=== PATIENT | female | born 1940 | race Caucasian/White ===

== ENCOUNTER 2017-04-26 10:24 | Outpatient (CLI) | payer MEDICARE, MEDICAID | END 2017-04-26 10:25 | disposition critical access hospital (66) | LOC: EMS 10:24 | PROVIDERS: ATTEND Surgery | DX: R06.00 Dyspnea, unspecified (principal) | CPT/HCPCS: A0425; A0429 ==

== ENCOUNTER 2017-04-26 10:25 | Emergency (ER) | payer MEDICARE, MEDICAID ==
[2017-04-26] MEDS ORDERED: IPRATROPIUM/ALBUTEROL 3 ML NEB INH STA (10:56)
[2017-04-26] MEDS ORDERED: IPRATROPIUM/ALBUTEROL 3 ML NEB INH ONE (11:04)
[2017-04-26] MEDS ORDERED: cefTRIAXone 1 GM in SODIUM CHLORIDE 0.9% MINIBAG 100 ML IV STA (11:42)
[2017-04-26] MEDS ORDERED: DEXAMETHASONE 10 MG/ML VIAL IVP STA (11:42)
[2017-04-26] MEDS ORDERED: cefTRIAXone 1 GM VIAL ONE (11:45)
[2017-04-26] MEDS ORDERED: DEXAMETHASONE 10 MG/ML VIAL ONE (11:45)
--- NOTE | 2017-04-26 11:45 | ED Physician Documentation ---
PD HPI URI - Stated complaint Stated Complaint: SOA - Chief complaint Chief Complaint: Resp - History obtained from History obtained from: Patient, Family - History of Present Illness Timing - onset: How many months ago (2) Timing duration: Months (2) Timing details: Gradual onset, Still present, Waxing and waning Associated symptoms: Nasal congestion, Rhinorrhea, Productive cough, Dyspnea Contributing factors: Travel Improves by: Rest, MDI/nebulizer Worsened by: Activity Similar symptoms before: Diagnosis (has asthma) Recently seen: Clinic (Seen in the clinic yesterday and prescribed antibiotic and steroid but has not picked it up yet.) - Additional information Additional information: 77 y/o female with a history of asthma, type 2 diabetes and HTN has developed a cough before a trip to [place] about 2 months ago. The cough has persisted and she has had intermittent ear pain and muffled hearing. She has recently had a pharmacy error with amlodipine substituted for her synthroid and this caused some swelling to the LE and this has resolved since she stopped the medication and she was on this double dose for about a week about a week ago. 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 : None HEENT: None Psych: Depression Musculoskeletal: None Derm: None - Past Surgical History Past Surgical History: Yes General: Cholecystectomy Ortho: Arthroscopic surgery /INTEGRATED MARKETING MANAGER: Hysterectomy HEENT: Tonsil/Adenoidectomy - Present Medications Home Medications: Ambulatory Orders Medication Instructions Recorded Confirmed Citalopram [CeleXA] 20 mg PO DAILY 05/01/14 04/26/17 Glipizide 10 mg PO BID 05/01/14 04/26/17 Hydrochlorothiazide 12.5 mg PO DAILY 05/01/14 04/26/17 Levothyroxine [Synthroid] 175 mcg PO QDAC 05/01/14 04/26/17 Losartan [Cozaar] 100 mg PO DAILY 05/01/14 04/26/17 Omeprazole [Prilosec] 20 mg PO BID 05/01/14 04/26/17 Simvastatin 40 mg PO DAILY 05/01/14 04/26/17 metFORMIN [Glucophage] 500 mg PO BID 05/01/14 04/26/17 Azithromycin [Zithromax] 250 mg PO DAILY #6 tablet 04/26/17 Benzonatate [Tessalon] 100 - 200 mg PO TID PRN #20 capsule 04/26/17 Ipratropium/Albuterol [Duoneb] 3 ml INH Q6H PRN #20 neb 04/26/17 amLODIPine [Norvasc] 1 tab PO DAILY 04/26/17 04/26/17 predniSONE [Deltasone] 10 mg PO DAILY #26 tablet 04/26/17 - Allergies Allergies/Adverse Reactions: Allergies Allergy/AdvReac Type Severity Reaction Status Date / Time codeine AdvReac Nausea Verified 05/01/14 11:57 - Social History Does the pt smoke?: Yes Smoking Status: Former smoker Does the pt drink ETOH?: No Does the pt have substance abuse?: No - Immunizations Immunizations are current?: Yes - POLST Patient has POLST: No PD ED PE NORMAL - HEENT HEENT: Other (The left TM is inflammed with indistinct landmarks the right is less inflammed. ) - Neck Neck: Supple, no meningeal sign - Cardiac Cardiac: RRR, No murmur - Respiratory Respiratory: No respiratory distress, Other (bibasilar rhonchi worse on the left ) - Abdomen Abdomen: Soft, Non tender - Back Back: No CVA TTP, No spinal TTP - Derm Derm: Normal color, Warm and dry, No rash - Extremities Extremities: No deformity, Other (trace edema bilaterally.) Results - Vitals Vitals: Vital Signs - 24 hr 04/26/17 04/26/17 10:28 11:50 Temperature 36.6 C Heart Rate 88 75 Respiratory 19 17 Rate Blood Pressure 205/88 H 168/116 H O2 Saturation 93 95 Oxygen O2 Source [] Room air O2 Source [] Room air O2 Source Room air - Rads (name of study) 2 veiw chest Radiology: Prelim report reviewed (IMPRESSION: 1. Lung volumes and heart size are within normal limits. 2. There are some nonspecific reticular opacity within the lower lungs. Primary considerations include atelectasis or scarring. 2. There is no evidence of lobar infiltrate or lung edema. 4. No pneumothorax.) Departure - Departure Disposition: 01 Home, Self Care Clinical Impression: Otitis media Qualifiers: Otitis media type: suppurative Laterality: bilateral Chronicity: acute Recurrence: not specified as recurrent Spontaneous tympanic membrane rupture: without spontaneous rupture Qualified Code(s): H66.003 - Acute suppurative otitis media without spontaneous rupture of ear drum, bilateral Condition: Stable Instructions: ED Otitis Media Acute Adult Follow-Up: Bora Gilmore MD [Primary Care Provider] - Prescriptions: predniSONE [Deltasone] 10 mg PO DAILY #26 tablet Ipratropium/Albuterol [Duoneb] 3 ml INH Q6H PRN #20 neb PRN Reason: Dyspnea Benzonatate [Tessalon] 100 - 200 mg PO TID PRN #20 capsule PRN Reason: Cough Azithromycin [Zithromax] 250 mg PO DAILY #6 tablet
--- NOTE | 2017-04-26 13:00 | XRAY Report ---
EXAM: CHEST RADIOGRAPHY EXAM DATE: 04/26/2017 12:05 PM. CLINICAL HISTORY: Cough dyspnea. COMPARISON: None. TECHNIQUE: 2 views. FINDINGS: Lungs/Pleura: Lung volumes are within normal limits. There is mild reticular opacity within the lower lungs. No evidence of pleural effusion. No evidence of lung edema. No pneumothorax. Mediastinum: Heart and mediastinal contours are unremarkable. Other: None. IMPRESSION: 1. Lung volumes and heart size are within normal limits. 2. There are some nonspecific reticular opacity within the lower lungs. Primary considerations includ e atelectasis or scarring. 3. There is no evidence of lobar infiltrate or lung edema. 4. No pneumothorax. [facility] Referring Provider Line: [phone] SITE ID: [id number]
[2017-04-26 13:40] VITALS: BP 189/81
== END 2017-04-26 13:45 | disposition home or self-care (01) ==
LOC: ED 10:25
DX: H66.003 Acute suppurative otitis media without spontaneous rupture of ear drum, bilateral (principal); J45.909 Unspecified asthma, uncomplicated; E11.9 Type 2 diabetes mellitus without complications; I10 Essential (primary) hypertension; Z85.42 Personal history of malignant neoplasm of other parts of uterus; Z79.84 Long term (current) use of oral hypoglycemic drugs; Z87.891 Personal history of nicotine dependence
CPT/HCPCS: 71020; 96374; 99283; 99284; J7620

== ENCOUNTER 2017-10-26 18:34 | Emergency (ER) | payer MEDICARE, MEDICAID ==
[2017-10-26 19:14] LABS: BASOPHILS # (AUTO) 0.1 10^3/uL (0.0-0.1); BASOPHILS % (AUTO) 0.7 %; EOSINOPHILS # (AUTO) 0.4 10^3/uL (0.0-0.7); EOSINOPHILS % (AUTO) 4.1 %; HCT - HEMATOCRIT 33.8 % (37.0-47.0); HGB - HEMOGLOBIN 11.4 g/dL (12.0-16.0); LYMPHOCYTES # (AUTO) 1.5 10^3/uL (1.5-3.5); LYMPHOCYTES % (AUTO) 15.5 %; MEAN CORPUSCULAR HEMOGLOBIN 30.4 pg (27.0-31.0); MEAN CORPUSCULAR HGB CONC 33.6 g/dL (32.0-36.0); MEAN CORPUSCULAR VOLUME 90.6 fL (81.0-99.0); MEAN PLATELET VOLUME 8.8 fL (7.9-10.8); MONOCYTES # (AUTO) 0.6 10^3/uL (0.0-1.0); MONOCYTES % (AUTO) 5.7 %; NEUTROPHILS # (AUTO) 7.3 10^3/uL (1.5-6.6); RED BLOOD COUNT 3.74 10^6/uL (4.20-5.40); UNCORRECTED WHITE BLOOD COUNT 9.8 x10^3/uL; WHITE BLOOD COUNT 9.8 x10^3/uL (4.8-10.8)
[2017-10-26 19:23] LABS: CALCIUM 9.4 mg/dL (8.5-10.3); CREATININE 1.3 mg/dL (0.4-1.0); POTASSIUM 4.1 mmol/L (3.5-5.0)
--- NOTE | 2017-10-26 20:11 | CT Report ---
EXAM: CT HEAD EXAM DATE: 10/26/2017 07:38 PM. CLINICAL HISTORY: Headache and altered mental status. COMPARISON: Head CT 10/19/2016. TECHNIQUE: Multiaxial CT images were obtained from the foramen magnum to the vertex. IV contrast: Non e. Reformats: Coronal. In accordance with CT protocol optimization, one or more of the following dose reduction techniques w ere utilized for this exam: automated exposure control, adjustment of mA and/or KV based on patient s ize, or use of iterative reconstructive technique. FINDINGS: Parenchyma: No intraparenchymal hemorrhage. Moderate left cerebellar hemisphere chronic encephalomala lily appears unchanged. New hypodense lesion seen at the right temporoparietal and occipital lobe junc tion, measures 1.9 x 2.2 cm. New hypodense lesion seen at the left posterior medial occipital lobe me asuring 2 x 2.2 cm. New small hypodense lesion seen at the posterior medial aspect of the left pariet al lobe measuring 1 cm. These new hypodense lesions are concerning for new malignant masses/metastasi s with vasogenic edema. Differential includes subacute or chronic infarcts. Further evaluation is rec ommended with an MRI brain without and with contrast. No midline shift or downward herniation. Mild bilateral chronic microangiopathy again noted in the supratentorial white matter. Extraaxial Spaces: Normal for age. No subdural or epidural collections identified. Ventricles: The ventricles and cortical sulci are mildly enlarged, consistent with age-related tissue loss. Sinuses and orbits: Imaged paranasal sinuses, orbits, and mastoids show no significant abnormality. Bones: No evidence of fracture or calvarial defect. IMPRESSION: 1. New hypodense lesion seen at the right temporoparietal and occipital lobe junction, measures 1.9 x 2.2 cm. New hypodense lesion seen at the left posterior medial occipital lobe measuring 2 x 2.2 cm. New small hypodense lesion seen at the posterior medial aspect of the left parietal lobe measuring 1 cm. These new hypodense lesions are concerning for new malignant masses/metastasis with vasogenic cecile ma. Differential includes subacute or chronic infarcts. Further evaluation is recommended with an MRI brain without and with contrast. 2. Moderate left cerebellar hemisphere chronic encephalomalacia appears unchanged. Chronic senescent changes. [facility] The above critical findings were discussed with Dr. Hair by Dr. Doris Jones at 20:04 hrs on 12/26/16. Referring Provider Line: [phone] SITE ID: [id number]
[2017-10-26] MEDS ORDERED: IOPAMIDOL-300 100 ML VIAL ONE (20:35)
[2017-10-26] MEDS ORDERED: IOPAMIDOL-300 100 ML VIAL IVP ONE (21:17)
--- NOTE | 2017-10-26 22:07 | ED Physician Documentation ---
History of Present Illness - Stated complaint Stated Complaint: LOSS VISION - Chief complaint Chief Complaint: Neuro - History obtained from History obtained from: Patient (pt reports that right after she woke this AM she noticed that she was having problems seeing. she reportes "black spots" that moved around. states that she has had a small headache. She states that she has had "floaters" in the past but her vision is blurry today. No trauma, no neck pain.) Review of Systems Constitutional: denies: Fever, Chills Eyes: reports: Loss of vision, Decreased vision. denies: Photophobia, Irritation Ears: denies: Loss of hearing, Drainage/discharge Throat: denies: Oral lesions / sores, Sore throat Cardiac: denies: Chest pain / pressure Respiratory: denies: Cough GI: denies: Abdominal Pain, Nausea, Vomiting, Constipation, Diarrhea : denies: Dysuria, Frequency Skin: denies: Rash, Lesions Musculoskeletal: denies: Neck pain, Extremity pain, Joint pain, Joint swelling Neurologic: reports: Headache. 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 : None HEENT: None Psych: Depression Musculoskeletal: None Derm: None - Past Surgical History Past Surgical History: Yes General: Cholecystectomy Ortho: Arthroscopic surgery /STOVE TENDER: Hysterectomy HEENT: Tonsil/Adenoidectomy - Present Medications Home Medications: Ambulatory Orders Medication Instructions Recorded Confirmed Citalopram [CeleXA] 20 mg PO DAILY 05/01/14 04/26/17 Glipizide 10 mg PO BID 05/01/14 04/26/17 Hydrochlorothiazide 12.5 mg PO DAILY 05/01/14 04/26/17 Levothyroxine [Synthroid] 175 mcg PO QDAC 05/01/14 04/26/17 Losartan [Cozaar] 100 mg PO DAILY 05/01/14 04/26/17 Omeprazole [Prilosec] 20 mg PO BID 05/01/14 04/26/17 Simvastatin 40 mg PO DAILY 05/01/14 04/26/17 metFORMIN [Glucophage] 500 mg PO BID 05/01/14 04/26/17 Azithromycin [Zithromax] 250 mg PO DAILY #6 tablet 04/26/17 Benzonatate [Tessalon] 100 - 200 mg PO TID PRN #20 capsule 04/26/17 Ipratropium/Albuterol [Duoneb] 3 ml INH Q6H PRN #20 neb 04/26/17 amLODIPine [Norvasc] 1 tab PO DAILY 04/26/17 04/26/17 predniSONE [Deltasone] 10 mg PO DAILY #26 tablet 04/26/17 - Allergies Allergies/Adverse Reactions: Allergies Allergy/AdvReac Type Severity Reaction Status Date / Time codeine AdvReac Nausea Verified 10/26/17 18:54 - Social History Does the pt smoke?: Yes Smoking Status: Current every day smoker Does the pt drink ETOH?: No Does the pt have substance abuse?: No - Immunizations Immunizations are current?: Yes - POLST Patient has POLST: No PD ED PE NORMAL - Vitals Vital signs reviewed: Yes - General General: Alert and oriented X 3, No acute distress, Well developed/nourished - HEENT HEENT: Atraumatic, PERRL, EOMI, Ears normal, Moist mucous membranes, Pharynx benign - Cardiac Cardiac: RRR, No murmur, No gallop - Respiratory Respiratory: No respiratory distress, Clear bilaterally - Abdomen Abdomen: Soft, Non tender, Non distended - Derm Derm: Normal color, Warm and dry, No rash - Extremities Extremities: No deformity, No tenderness to palpate, No edema, No calf tenderness / cord - Neuro Neuro: Alert and oriented X 3, No motor deficit, No sensory deficit, Normal speech Eye Opening: Spontaneous Motor: Obeys Commands Verbal: Oriented GCS Score: 15 - Psych Psych: Normal mood, Normal affect PD ED PE EXPANDED - Eyes Eyes: PERRL, Temp arteries nontender. No: Unequal pupils, EOM palsy, Subconj hemorrhage - Neuro Neuro: Alert and Oriented X 3, Normal speech. No: Weakness, Abnormal sensation , CNII-XII intact (pt with right visual field Hemianopsia. ), Aphasia, Dysarthria Results - Vitals Vitals: Vital Signs - 24 hr 10/26/17 10/26/17 10/26/17 18:38 19:57 20:15 Temperature 36.5 C Heart Rate 60 53 L 73 Respiratory 20 16 17 Rate Blood Pressure 190/50 H 179/66 H 182/59 H O2 Saturation 95 95 94 10/26/17 21:56 Temperature 36.9 C Heart Rate 69 Respiratory 20 Rate Blood Pressure 184/65 H O2 Saturation 96 Oxygen O2 Source [With Activity] Room air O2 Source [Without Activity] Room air O2 Source Room air - EKG (time done) 1859 Rate: Rate (enter#) Rhythm: Sinus bradycardia [place]: Normal Intervals: QRS normal. No: Prolonged NC (88 ms), Prolonged QT QRS: Normal Ischemia: Normal ST segments Other comments: Other comments (multiple PVC) - Labs Labs: Laboratory Tests 10/26/17 10/26/17 19:05 19:05 WBC 9.8 RBC 3.74 L Hgb 11.4 L Hct 33.8 L MCV 90.6 MCH 30.4 MCHC 33.6 RDW 14.0 Plt Count 254 MPV 8.8 Neut # 7.3 H Lymph # 1.5 Glades # 0.6 Eos # 0.4 Baso # 0.1 Absolute Nucleated RBC 0.00 Nucleated RBC % 0.0 Sodium 140 Potassium 4.1 Chloride 103 Carbon Dioxide 25 Anion Gap 12.0 BUN 26 H Creatinine 1.3 H Estimated GFR (MDRD) 40 L Glucose 130 H Calcium 9.4 - Rads (name of study) CT head Radiology: Final report received CTA head/neck Radiology: Prelim report reviewed (basilar artery occlusion ) PD MEDICAL DECISION MAKING - ED course Complexity details: d/w patient ED course: patient with right visual field vision loss. Discussed case with Dr Pereyra at [facility] neurology. Pt's symptoms began this AM. she is not inthe window for TpA. discussed CTA result with Dr Pereyra who states that she is not a candidate for emergent IR intervention. Will give a full dose ASA per [facility] recommendation. discussed with patient and family. will transfer. Departure - Departure Disposition: 02 Transfer Acute Care Hosp Clinical Impression: Cerebrovascular accident (CVA) Condition: Stable
[2017-10-26] MEDS ORDERED: ASPIRIN 325 MG TABLET PO ONE (22:08)
--- NOTE | 2017-10-26 22:26 | CT Preliminary Report ---
Exam: CT HEAD ANGIO IMPRESSION: CT Head: 1. There are 3 peripheral foci of hypodensity with faint patchy peripheral enhancement as noted above . These involve right temporal and left occipital lobes. These may represent areas of late acute or e kelly subacute infarct. This could be further evaluated with MRI. 2. 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 3. Mild patchy white matter hypodensity noted in the cerebral hemispheres. This is nonspecific. This may represent sequela of small vessel ischemic change. 4. Intracranial atherosclerotic vascular calcifications. CTA Head: 1. Occlusion of intracranial right vertebral artery. This may be atherosclerotic in nature rather kalp[place] n secondary to dissection. 2. Moderate vascular calcifications involving intracranial left vertebral artery. Mild, 25%, stenosis . Left vertebral artery and basilar artery are patent. 3. Marked atherosclerotic calcification involving cavernous ICA. This makes evaluation of stenosis johnson boptimal. There likely is long segment mild stenosis present. 4. Moderate stenosis involving proximal M2 branch of posterior division right MCA. 5. Moderate to severe stenosis involving P2 and P3 segments of left BRICK SIDING APPLICATOR. [facility] SITE ID: [id number]
--- NOTE | 2017-10-26 22:28 | CT Report ---
EXAM: CT ANGIOGRAM NECK EXAM DATE: 10/26/2017 09:23 PM. CLINICAL HISTORY: Stroke. Headache. Altered mental status. Multiple hypodense lesions present in the brain. COMPARISON: None. CT scan and CT angiogram of the head 10/26/2017. TECHNIQUE: Routine axial helical imaging was performed from the skull base through the aortic arch. I V Contrast: 70 cc [id number]. Reconstructions: Routine multiplanar 3D MIP reconstructions. Evaluation of arterial stenosis is based on a NASCET method of measurement. In accordance with CT protocol optimization, one or more of the following dose reduction techniques w ere utilized for this exam: automated exposure control, adjustment of mA and/or KV based on patient s ize, or use of iterative reconstructive technique. FINDINGS: (Suboptimal opacification of the aortic arch and great vessels is seen. Timing of contrast is in pulm onary arterial phase.) Mild tortuosity and calcification of the aortic arch is seen. Great vessels off the arch are patent. Moderate tortuosity and scattered atherosclerotic vascular calcifications are seen. Right Carotid: The common carotid, internal carotid, and external carotid arteries are widely patent. No dissection, significant atherosclerotic plaque, or calcification identified. Mild vascular calcif ication is seen at the CCA bifurcation. Left Carotid: The common carotid, internal carotid, and external carotid arteries are widely patent. No dissection. Mild atherosclerotic calcification is seen at the CCA bifurcation. The ICA is patent w ithout significant stenosis. Moderate stenosis is seen at the origin of the ECA. The ECA is patent. Vertebrals: The left vertebral artery is patent and unremarkable. No significant atherosclerotic change or stenos is. No dissection. The right vertebral artery is abnormal. Minimal faint opacification of cervical right vertebral arter y is appreciated to the V3 segment. No significant opacification of the V4 segment is identified. Intracranial Circulation: (See report of CT angiogram of the intracranial circulation performed same time.) Other: The lung apices are clear. Muscle and fascial planes of the neck are unremarkable. Straightening of the cervical spine is seen. Mild spondylolisthesis is seen at C3-C4 and C4-C5. Scatt ered spondylosis is seen throughout the cervical spine. Left-sided degenerative facet changes seen at C2-C3 and C3-C4. Degenerative disk and uncovertebral changes seen at C5-C6 and C6-C7. IMPRESSION: 1. Abnormal right vertebral artery. No significant opacification of the cervical right VA is seen. 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 This could be secondary to atherosclerotic change versus dissection. 2. The left vertebral artery is dominant and widely patent. 3. Bilateral carotid arteries are patent. [facility] Referring Provider Line: [phone] SITE ID: [id number]
--- NOTE | 2017-10-26 22:29 | CT Report ---
EXAM: CT ANGIOGRAM HEAD. CT SCAN OF THE HEAD WITH CONTRAST. EXAM DATE: 10/26/2017 09:23 PM CLINICAL HISTORY: Stroke. Headache. Altered mental status. Multiple hypodense lesions present in the brain. COMPARISON: CT scan of the head without contrast 10/26/2017, 10/19/2016. CT angiogram of the neck . TECHNIQUE: 1. CT Scan Head: Using a multidetector scanner, axial images were acquired from the foramen magnum to the skull vertex following contrast administration. 2. CT Angiogram: Using a multidetector scanner, high-resolution axial images were acquired from the s kull base through vertex following rapid infusion of intravenous contrast. Reformats: Multiplanar MIP reformats were reconstructed. Nascet criteria used for stenosis measurement. IV Contrast: 70 cc Isovue-300. In accordance with CT protocol optimization, one or more of the following dose reduction techniques w ere utilized for this exam: automated exposure control, adjustment of mA and/or KV based on patient s ize, or use of iterative reconstructive technique. FINDINGS: POST CONTRAST HEAD: Parenchyma: There are 3 wedge-shaped areas of parenchymal hypodensity seen in the cerebral hemisphere s. Minimal faint patchy peripheral enhancement is seen, however no significant enhancement is present on this arterial phase study. No vasogenic edema surrounding the faint enhancement is seen. 20 mm we dge-shaped lesion is seen posterolaterally in the right temporal lobe. 15 mm lesion is seen in the po steromedial pole of the left occipital lobe. 8 mm lesion is seen posteromedially in the superior aspe ct of the left occipital lobe. Wedge-shaped encephalomalacia is seen in the inferolateral left cerebellum, unchanged. Mild patchy wh ite matter hypodensity is seen in the cerebral hemispheres. No intracranial hemorrhage. Extraaxial Spaces: Normal for age. No subdural or epidural collections identified. Ventricles: Normal in size and position. Sinuses and orbits: Imaged paranasal sinuses, orbits, and mastoids show no significant abnormality. Bones: No evidence of fracture or calvarial defect. Other: Marked atherosclerotic vascular calcification is seen involving intracranial ICA and vertebral arteries. CT ANGIOGRAM HEAD: RIGHT: Internal Carotid artery: No evidence of dissection. No evidence of aneurysm along the intracranial IC A. Marked vascular calcification is seen in the cavernous and proximal supracavernous segments. Evalu ation for stenosis is suboptimal. There likely is multilevel mild stenosis present. Anterior Cerebral Artery: Patent without significant stenosis, aneurysm, or vascular malformation. Middle Cerebral Artery: Moderate stenosis is seen in proximal M2 posterior division segment. Distal t o this M2 and candelabra branches are patent. No aneurysm. Posterior Cerebral Artery: Patent without significant stenosis, aneurysm, or vascular malformation. Posterior Communicating Artery: Patent. No aneurysm. Vertebral Artery: Markedly abnormal. No significant opacification is seen involving intracranial V4 s egment. Scattered atherosclerotic calcifications are present. There may be subtle faint opacification of the V3 segment. Opacification of irregular small caliber distal V4 segment is seen proximal to th e basilar artery. LEFT: Internal Carotid artery: No evidence of dissection. No evidence of aneurysm along the intracranial IC A. Marked vascular calcification is seen in the cavernous and proximal supracavernous segments. Evalu ation for stenosis is suboptimal. There likely is multilevel mild stenosis present. Anterior Cerebral Artery: Patent without significant stenosis, aneurysm, or vascular malformation. Middle Cerebral Artery: Patent without significant stenosis, aneurysm, or vascular malformation. Acce ssory origin of posterior division MCA is seen from the distal supracavernous ICA just proximal to th e terminus. Posterior Cerebral Artery: Moderate to severe stenosis is seen in the P2 and P3 segment. Posterior Communicating Artery: Patent. No aneurysm. Vertebral Artery: Patent without significant stenosis. No evidence of dissection. Moderate atheroscle rotic calcification is seen. Mild, less than 50%, stenosis is seen. CENTRAL: Anterior Communicating Artery: Patent. No aneurysm. Basilar Artery: Patent without significant stenosis. No aneurysm. DURAL VENOUS SINUSES AND MAJOR CENTRAL VEINS: Not well opacified due to early arterial phase timing o f angiogram study. On postcontrast head CT dural sinuses appear patent. IMPRESSION: CT Head: 1. There are 3 peripheral foci of hypodensity with faint patchy peripheral enhancement as noted above . These involve right temporal and left occipital lobes. These may represent areas of late acute or e kelyl subacute infarct. This could be further evaluated with MRI. 2. 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 3. Mild patchy white matter hypodensity noted in the cerebral hemispheres. This is nonspecific. This may represent sequela of small vessel ischemic change. 4. Intracranial atherosclerotic vascular calcifications. CTA Head: 1. Occlusion of intracranial right vertebral artery. This may be atherosclerotic in nature rather kalpana n secondary to dissection. 2. Moderate vascular calcifications involving intracranial left vertebral artery. Mild, 25%, stenosis . Left vertebral artery and basilar artery are patent. 3. Marked atherosclerotic calcification involving cavernous ICA. This makes evaluation of stenosis johnson boptimal. There likely is long segment mild stenosis present. 4. Moderate stenosis involving proximal M2 branch of posterior division right MCA. 5. 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 [facility] Referring Provider Line: [phone] SITE ID: [id number]
[2017-10-27 00:19] VITALS: BP 176/65
== END 2017-10-27 01:15 | disposition short-term general hospital (02) ==
LOC: ED 18:34
DX: I63.9 Cerebral infarction, unspecified (principal); H53.8 Other visual disturbances; I10 Essential (primary) hypertension; J45.909 Unspecified asthma, uncomplicated; E11.9 Type 2 diabetes mellitus without complications; Z79.84 Long term (current) use of oral hypoglycemic drugs; K21.9 Gastro-esophageal reflux disease without esophagitis; Z85.42 Personal history of malignant neoplasm of other parts of uterus; F17.200 Nicotine dependence, unspecified, uncomplicated
CPT/HCPCS: 36415; 70450; 70496; 70498; 80048; 85025; 93005; 99285; A9270; Q9967

== ENCOUNTER 2017-12-12 13:22 | Outpatient (CLI) | payer MEDICARE, MEDICAID ==
[2017-12-12 14:05] LABS: ALBUMIN/GLOBULIN RATIO 1.3 (1.0-2.2); ALKALINE PHOSPHATASE 93 IU/L (42-121); ALT ALANINE AMINOTRANSFERASE 22 IU/L (10-60); AST ASPARTATE AMINOTRANSFERASE 23 IU/L (10-42); BILIRUBIN,TOTAL 0.6 mg/dL (0.2-1.0); BUN - BLOOD UREA NITROGEN 29 mg/dL (6-20); CALCIUM 9.2 mg/dL (8.5-10.3); CARBON DIOXIDE - CO2 25 mmol/L (21-32); CHLORIDE 102 mmol/L (101-111); CHOL/HDL RATIO 7.4 (<4.4); CHOLESTEROL 244 mg/dL; CREATININE 1.3 mg/dL (0.4-1.0); GFR - MDRD 40 (>89); GLUCOSE 222 mg/dL (70-100); HDL CHOLESTEROL 33 mg/dL; SODIUM 137 mmol/L (135-145); TOTAL PROTEIN 7.1 g/dL (6.7-8.2)
[2017-12-12 14:20] LABS: HB2 TOTAL 12.4 g/dL; HEMOGLOBIN A1C 0.82 g/dL; HEMOGLOBIN A1C % 8.2 % (4.6-6.2)
[2017-12-12 14:41] LABS: LDL CHOLESTEROL,DIRECT 106 mg/dL; LDLD/HDL RATIO 3.2 (<4.4)
== END 2017-12-12 13:23 | disposition home or self-care (01) ==
LOC: LAB 13:22
PROVIDERS: ATTEND Internal Medicine
DX: E78.5 Hyperlipidemia, unspecified (principal); E11.9 Type 2 diabetes mellitus without complications
CPT/HCPCS: 36415; 80053; 80061; 83036

== ENCOUNTER 2018-01-02 09:08 | Outpatient (CLI) | payer MEDICARE, MEDICAID ==
[2018-01-02 09:31] LABS: PT - PROTHROMBIN TIME 11.8 secs (9.9-12.6)
== END 2018-01-02 09:09 | disposition home or self-care (01) ==
LOC: LAB 09:08
PROVIDERS: ATTEND Internal Medicine
DX: I48.91 Unspecified atrial fibrillation (principal)
CPT/HCPCS: 36415; 85610

== ENCOUNTER 2018-01-09 13:51 | Outpatient (CLI) | payer MEDICARE, MEDICAID ==
[2018-01-09 14:19] LABS: INR 3.1 (0.8-1.2); PT - PROTHROMBIN TIME 33.9 secs (9.9-12.6)
== END 2018-01-09 13:52 | disposition home or self-care (01) ==
LOC: LAB 13:51
PROVIDERS: ATTEND Internal Medicine
DX: I48.91 Unspecified atrial fibrillation (principal)
CPT/HCPCS: 36415; 85610

== ENCOUNTER 2018-01-17 12:11 | Outpatient (CLI) | payer MEDICARE, MEDICAID ==
[2018-01-17 13:01] LABS: INR 5.2 (0.8-1.2)
== END 2018-01-17 12:12 | disposition home or self-care (01) ==
LOC: LAB 12:11
PROVIDERS: ATTEND Internal Medicine
DX: I48.91 Unspecified atrial fibrillation (principal)
CPT/HCPCS: 36415; 85610

== ENCOUNTER 2018-01-24 08:56 | Outpatient (CLI) | payer MEDICARE, MEDICAID ==
[2018-01-24 09:23] LABS: INR 2.4 (0.8-1.2); PT - PROTHROMBIN TIME 26.4 secs (9.9-12.6)
== END 2018-01-24 08:57 | disposition home or self-care (01) ==
LOC: LAB 08:56
PROVIDERS: ATTEND Internal Medicine
DX: I48.91 Unspecified atrial fibrillation (principal)
CPT/HCPCS: 36415; 85610

== ENCOUNTER 2018-02-28 10:12 | Outpatient (CLI) | payer MEDICARE, MEDICAID ==
[2018-02-28 10:43] LABS: INR 3.8 (0.8-1.2); PT - PROTHROMBIN TIME 40.5 secs (9.9-12.6)
== END 2018-02-28 10:13 | disposition home or self-care (01) ==
LOC: LAB 10:12
PROVIDERS: ATTEND Internal Medicine
DX: I48.91 Unspecified atrial fibrillation (principal)
CPT/HCPCS: 85610

== ENCOUNTER 2018-03-07 13:06 | Outpatient (CLI) | payer MEDICARE, MEDICAID ==
[2018-03-07 13:37] LABS: INR 3.7 (0.8-1.2); PT - PROTHROMBIN TIME 39.8 secs (9.9-12.6)
== END 2018-03-07 13:07 | disposition home or self-care (01) ==
LOC: LAB 13:06
PROVIDERS: ATTEND Internal Medicine
DX: I48.91 Unspecified atrial fibrillation (principal)
CPT/HCPCS: 36415; 85610

== ENCOUNTER 2018-03-21 11:25 | Outpatient (CLI) | payer MEDICARE, MEDICAID ==
[2018-03-21 11:44] LABS: INR 3.7 (0.8-1.2); PT - PROTHROMBIN TIME 40.1 secs (9.9-12.6)
== END 2018-03-21 11:26 | disposition home or self-care (01) ==
LOC: LAB 11:25
PROVIDERS: ATTEND Internal Medicine
DX: I48.91 Unspecified atrial fibrillation (principal)
CPT/HCPCS: 36415; 85610

== ENCOUNTER 2018-03-28 11:24 | Outpatient (CLI) | payer MEDICARE, MEDICAID ==
[2018-03-28 11:45] LABS: INR 2.1 (0.8-1.2); PT - PROTHROMBIN TIME 23.3 secs (9.9-12.6)
== END 2018-03-28 11:25 | disposition home or self-care (01) ==
LOC: LAB 11:24
PROVIDERS: ATTEND Internal Medicine
DX: I48.91 Unspecified atrial fibrillation (principal)
CPT/HCPCS: 36415; 85610

== ENCOUNTER 2018-04-24 20:35 | Outpatient (CLI) | payer MEDICARE, MEDICAID ==
--- NOTE | 2018-04-25 10:01 | Ultrasound Report ---
COMPLETE ABDOMINAL ULTRASOUND: 04/24/2018 CLINICAL INDICATION: Bloating, palpable abnormality. TECHNIQUE: Real-time scanning was performed with automobile rental representative static images obtained. FINDINGS: The liver measures 14.4 cm. Hepatic echogenicity is increased. No focal parenchymal lesion or intrahepatic biliary dilatation is present. The common bile duct measures 9 mm. The patient is status post cholecystectomy. The pancreas is obscured by bowel gas. The right kidney measures 11.1 cm, and the left kidney measures 11.5 cm. Renal cortical echotexture appears increased bilaterally, suggestive of medical renal disease. No hydronephrosis or focal parenchymal lesion is seen. The spleen measures 9.8 cm, and demonstrates normal echotexture. The visualized abdominal aorta is normal in caliber. The inferior vena cava appears unremarkable. Scanning of the palpable region identified by the patient reveals no evidence of discrete mass or cyst. No abdominal wall hernia is seen. IMPRESSION: LIKELY FATTY INFILTRATION OF THE LIVER. CHANGES OF CHOLECYSTECTOMY. NO SONOGRAPHIC CORRELATE TO THE PALPABLE ABNORMALITY. TD: 04/25/2018 09:34
== END 2018-04-24 20:36 | disposition home or self-care (01) ==
LOC: DI 20:35
PROVIDERS: ATTEND Internal Medicine
DX: R14.0 Abdominal distension (gaseous) (principal)
CPT/HCPCS: 76700

== ENCOUNTER 2019-07-24 09:05 | Outpatient (CLI) | payer MEDICARE, MEDICAID ==
[2019-07-24 10:06] LABS: INR 2.3 (0.8-1.2); PT - PROTHROMBIN TIME 25.7 secs (9.9-12.6)
[2019-07-24 10:10] LABS: CREATININE 1.1 mg/dL (0.4-1.0)
[2019-07-24] MEDS ORDERED: GADOBUTROL 10 MMOL/10 ML VIAL ONE (12:01)
[2019-07-24] MEDS ORDERED: GADOBUTROL 10 MMOL/10 ML VIAL IVP ONE (12:40)
--- NOTE | 2019-07-25 07:30 | MRI Report ---
Reason: ASYMETRIC HEARING LOSS Procedure Date: 07/24/2019 Accession Number: [id number] / [id number] Procedure: MRI - IACS W/WO CPT Code: FULL RESULT: EXAM: MRI BRAIN AND INTERNAL AUDITORY CANAL (IAC),WITHOUT AND WITH CONTRAST. EXAM DATE: 07/24/2019 12:50 PM. CLINICAL HISTORY: Bilateral hearing loss which is asymmetric. COMPARISON: HEAD W/O 10/26/2017 7:18 PM. TECHNIQUE: Multiplanar, multisequence T1-weighted and fluid-sensitive MRI sequences of the brain and IACs were performed. Other: None. IV Contrast: 10 mL Gadavist. FINDINGS: On the sagittal images low T1-weighted signal in the dorsal cervical spinal cord is noted. There is no correlate on the coronal T2 sequence. Increased diffusion signal in the right precentral gyrus image 152 series 505 is felt to reflect T2 shine through. No abnormal magnetic susceptibility is present in the brain parenchyma. No cerebellar tonsillar ectopia is present. Encephalomalacia and gliosis are seen in the left cerebellum. Patchy FLAIR hyperintense signal seen in the central linda. Encephalomalacia and gliosis is seen in the posterior medial left occipital lobe. Encephalomalacia and gliosis are seen in the right posterior temporal lobe/occipital lobe junction. Subcortical and deep white matter FLAIR hyperintensities are seen throughout the cerebral hemisphere white matter. The inner ear structures have a normal MRI appearance. No enhancing mass is present in either internal auditory canal or either cerebellopontine angle. No enhancing mass is present in the brain parenchyma. A remote lacunar infarct is seen in the left thalamus. Expected enhancement is present in the major dural venous sinuses. IMPRESSION: 1. No enhancing mass is present in either cerebellopontine angle or internal auditory canal. 2. Areas of encephalomalacia and gliosis are seen from prior infarcts in the left cerebellum, left occipital lobe, and at the junction of the right temporal and occipital lobe. 3. Small vessel ischemic change is present throughout the cerebral hemisphere white matter and in the central linda. 4. No enhancing mass is present in the brain parenchyma. 5. Suspect artifact involving the posterior aspect of the upper cervical spinal cord. [facility]
== END 2019-07-24 09:06 | disposition home or self-care (01) ==
LOC: LAB 09:05 → DI 09:06
PROVIDERS: ATTEND Internal Medicine
DX: I69.398 Other sequelae of cerebral infarction (principal); G93.89 Other specified disorders of brain; Z01.812 Encounter for preprocedural laboratory examination; I67.82 Cerebral ischemia; I48.91 Unspecified atrial fibrillation; H90.42 Sensorineural hearing loss, unilateral, left ear, with unrestricted hearing on the contralateral side
CPT/HCPCS: 36415; 70543; 82565; 85610; A9585

== ENCOUNTER 2019-07-30 14:56 | Outpatient (CLI) | payer MEDICARE, MEDICAID ==
[2019-07-30 15:15] LABS: BASOPHILS # (AUTO) 0.1 10^3/uL (0.0-0.1); BASOPHILS % (AUTO) 0.5 %; EOSINOPHILS # (AUTO) 0.4 10^3/uL (0.0-0.7); EOSINOPHILS % (AUTO) 3.8 %; HGB - HEMOGLOBIN 9.7 g/dL (12.0-16.0); LYMPHOCYTES # (AUTO) 1.3 10^3/uL (1.5-3.5); LYMPHOCYTES % (AUTO) 13.7 %; MEAN CORPUSCULAR HGB CONC 30.9 g/dL (32.0-36.0); MEAN PLATELET VOLUME 11.4 fL (7.9-10.8); MONOCYTES # (AUTO) 0.7 10^3/uL (0.0-1.0); MONOCYTES % (AUTO) 6.8 %; NEUTROPHILS # (AUTO) 7.2 10^3/uL (1.5-6.6); NEUTROPHILS % (AUTO) 74.6 %; PLT - PLATELET COUNT 265 10^3/uL (130-450); RED BLOOD COUNT 3.34 10^6/uL (4.20-5.40); RED CELL DISTRIBUTION WIDTH 14.1 % (12.0-15.0); WHITE BLOOD COUNT 9.6 x10^3/uL (4.8-10.8)
[2019-07-30 15:27] LABS: CALCIUM 9.3 mg/dL (8.5-10.3); CREATININE 1.4 mg/dL (0.4-1.0)
== END 2019-07-30 14:57 | disposition home or self-care (01) ==
LOC: LAB 14:56
PROVIDERS: ATTEND Internal Medicine Cardiovascular Disease
DX: R06.02 Shortness of breath (principal); I10 Essential (primary) hypertension
CPT/HCPCS: 36415; 80048; 83880; 85025

== ENCOUNTER 2019-08-17 10:45 | Outpatient (CLI) | payer MEDICARE, MEDICAID ==
[2019-08-17 11:35] LABS: % IRON SATURATION 18 % (20-50); IRON 69 ug/dL (28-170); TOTAL IRON BINDING CAPACITY 385 ug/dL (250-450); TRANSFERRIN 275 mg/dL (192-382)
[2019-08-17 11:53] LABS: FOLATE 7.5 ng/mL (5.90 - >24.8)
== END 2019-08-17 10:46 | disposition home or self-care (01) ==
LOC: LAB 10:45
PROVIDERS: ATTEND Internal Medicine Cardiovascular Disease
DX: D64.9 Anemia, unspecified (principal); I10 Essential (primary) hypertension
CPT/HCPCS: 36415; 81599; 82088; 82607; 82746; 83540; 84466; 85045

== ENCOUNTER 2019-08-19 08:00 | Outpatient (CLI) | payer MEDICARE, MEDICAID | END 2019-08-19 23:59 | disposition home or self-care (01) | LOC: LAB.R 08:00 | PROVIDERS: ATTEND Internal Medicine Cardiovascular Disease | DX: D64.9 Anemia, unspecified (principal); I10 Essential (primary) hypertension | CPT/HCPCS: 81599; 83835 ==

== ENCOUNTER 2019-10-12 15:03 | Outpatient (CLI) | payer MEDICARE, MEDICAID | END 2019-10-12 15:04 | disposition critical access hospital (66) | LOC: EMS 15:03 | PROVIDERS: ATTEND Surgery | DX: R06.02 Shortness of breath (principal); R05 Cough | CPT/HCPCS: A0425; A0427 ==

== ENCOUNTER 2019-10-12 15:06 | Inpatient (IN) | payer MEDICARE, MEDICAID ==
--- NOTE | 2019-10-12 15:11 | ED Physician Documentation ---
PD HPI DYSPNEA - Stated complaint Stated Complaint: SOA - History obtained from History obtained from: Patient, EMS - History of Present Illness Timing - onset: How many weeks ago (The patient has had several weeks to a month or more of some dyspnea on exertion and had been to her radio survey worker who ordered pulmonary function tests. These were done at [facility] and she was feeling short of breath and was seen in the emergency department as well. She had x-ray blood tests and EKG to exclude acute coronary syndrome. She did not have any medications added. She continued with some increasing dyspnea with exertion and then the last several days has had chest cold type symptoms with coughing, body aches, yellow sputum and increased dyspnea with wheezing.) Timing - onset during: Light activity Timing - duration: Weeks (with wrosening the past few days) Timing - details: Gradual onset, Still present Inciting event(s): URI (the past few days). No: Out of meds Improved by: Inhaler/neb Worsened by: Exertion, Coughing. No: Laying flat Recently seen: Clinic (She was seen by radio survey worker a few weeks ago and had an ultrasound as well as PFTs done at [facility] for evaluation of her dyspnea. She has had increased dyspnea on exertion since that time without a clear diagnosis. It was not felt to be her CHF at the time she saw the radio survey worker.) Review of Systems Constitutional: reports: Fever (subjective for 2-3 days), Chills, Myalgias Nose: reports: Congestion. denies: Rhinorrhea / runny nose Throat: denies: Sore throat Cardiac: reports: Chest pain / pressure, Pedal edema (chronic, with some increase the past day). denies: Palpitations, Calf pain Respiratory: reports: Dyspnea, Cough, Wheezing GI: reports: Bloody / black stool (dark stool chronically on iron). denies: Abdominal Pain, Nausea, Vomiting, Diarrhea : denies: Dysuria Skin: denies: Rash, Lesions Musculoskeletal: denies: Neck pain, Back pain Neurologic: reports: Generalized weakness. 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 : None HEENT: None Psych: Depression Musculoskeletal: None Derm: None - Past Surgical History Past Surgical History: Yes General: Cholecystectomy Ortho: Arthroscopic surgery /LITHOPRESS OPERATOR: Hysterectomy HEENT: Tonsil/Adenoidectomy - Present Medications Home Medications: Ambulatory Orders Medication Instructions Recorded Confirmed Citalopram [CeleXA] 20 mg PO DAILY 05/01/14 10/12/19 Glipizide 10 mg PO BID 05/01/14 10/12/19 Hydrochlorothiazide 12.5 mg PO DAILY 05/01/14 04/26/17 Levothyroxine [Synthroid] 175 mcg PO QDAC 05/01/14 10/12/19 Losartan [Cozaar] 100 mg PO DAILY 05/01/14 10/12/19 Simvastatin 40 mg PO DAILY 05/01/14 10/12/19 metFORMIN [Glucophage] 1,000 mg PO BID 05/01/14 10/12/19 Ipratropium/Albuterol [Duoneb] 3 ml INH Q6H PRN #20 neb 04/26/17 amLODIPine [Norvasc] 2 tab PO DAILY 04/26/17 10/12/19 Chlorthalidone 25 mg PO DAILY 10/12/19 10/12/19 Metoprolol Tartrate 25 mg PO BID 10/12/19 10/12/19 Pantoprazole [Protonix] 40 mg PO DAILY 10/12/19 10/12/19 Terazosin [Hytrin] 2 mg PO DAILY 10/12/19 10/12/19 Warfarin [Coumadin] 5 mg PO DAILY 10/12/19 10/12/19 - Allergies Allergies/Adverse Reactions: Allergies Allergy/AdvReac Type Severity Reaction Status Date / Time codeine AdvReac Nausea Verified 10/12/19 15:24 - Social History Does the pt smoke?: Yes Smoking Status: Current every day smoker Does the pt drink ETOH?: No Does the pt have substance abuse?: No - Immunizations Immunizations are current?: Yes - POLST Patient has POLST: No PD ED PE NORMAL - Vitals Vital signs reviewed: Yes - General General: Alert and oriented X 3, Well developed/nourished - HEENT HEENT: Moist mucous membranes, Pharynx benign - Neck Neck: Supple, no meningeal sign - Cardiac Cardiac: No: RRR (regular but tachycardic) - Respiratory Respiratory: No: Clear bilaterally (She is having some work of breathing but no accessory muscle use. Has been able to talk in sentences. She has diffuse wheezing and coarse sounds particularly noted in the left base. I do not hear fine crackles. There is intermittent coughing with central congested sound.) - Abdomen Abdomen: Soft, Non tender - Rectal Rectal: Other (dark stool in vault; it is trace guiac positive (not melena itself)) - Back Back: No CVA TTP - Derm Derm: Normal color, Warm and dry - Extremities Extremities: No tenderness to palpate, Normal ROM s pain, No calf tenderness / cord, Other (1+ edema in both ankles and lower legs without any calf tenderness.) - Neuro Neuro: Alert and oriented X 3, No motor deficit, Normal speech Eye Opening: Spontaneous Motor: Obeys Commands Verbal: Oriented GCS Score: 15 Results - Vitals Vitals: Vital Signs - 24 hr 10/12/19 10/12/19 10/12/19 15:09 15:41 16:00 Temperature 36.7 C 36.5 C Heart Rate 94 97 102 H Respiratory 20 22 22 Rate Blood Pressure 147/70 H 142/63 H O2 Saturation 95 93 10/12/19 10/12/19 10/12/19 16:23 16:36 16:46 Temperature 36.5 C Heart Rate 107 H 105 H 98 Respiratory 24 20 22 Rate Blood Pressure 178/74 H 145/107 H 146/59 H O2 Saturation 93 9 L 89 L 10/12/19 10/12/19 10/12/19 17:03 17:21 17:36 Temperature 37.2 C Heart Rate 101 H 118 H 115 H Respiratory 19 32 H 28 H Rate Blood Pressure 158/91 H 163/67 H O2 Saturation 88 L 88 L Oxygen O2 Source [With Activity] Room air O2 Source [Without Activity] Room air O2 Source Oxymask Oxygen Flow Rate 3 - EKG (time done) 16:31 Rate: Rate (enter#) (106) Rhythm: Sinus tachycardia [place]: Normal Intervals: Normal MO Ischemia: ST depression, Non specific changes. No: ST elevation c/w ischemia - Labs Labs: Laboratory Tests 10/12/19 10/12/19 10/12/19 15:51 15:51 15:51 WBC 12.9 H RBC 2.77 L Hgb 8.1 L Hct 26.7 L MCV 96.4 MCH 29.2 MCHC 30.3 L RDW 14.1 Plt Count 244 MPV 11.3 H Neut # (Auto) 11.3 H Lymph # (Auto) 0.6 L Desha # (Auto) 0.8 Eos # (Auto) 0.1 Baso # (Auto) 0.1 Absolute Nucleated RBC 0.00 Nucleated RBC % 0.0 PT 37.8 H INR 3.6 H Sodium 140 Potassium 4.2 Chloride 109 Carbon Dioxide 20 L Anion Gap 11.0 BUN 37 H Creatinine 1.4 H Estimated GFR (MDRD) 36 L Glucose 226 H Calcium 9.1 Magnesium 2.0 Total Bilirubin 0.8 AST 15 ALT 14 Alkaline Phosphatase 92 Troponin I High Sens B-Natriuretic Peptide Total Protein 6.9 Albumin 3.8 Globulin 3.1 Albumin/Globulin Ratio 1.2 Lipase 20 L Influenza A (Rapid) Influenza B (Rapid) Blood Type Blood Type Recheck Antibody Screen Crossmatch IS Only 10/12/19 10/12/19 10/12/19 15:51 15:51 15:57 WBC RBC Hgb Hct MCV MCH MCHC RDW Plt Count MPV Neut # (Auto) Lymph # (Auto) Desha # (Auto) Eos # (Auto) Baso # (Auto) Absolute Nucleated RBC Nucleated RBC % PT INR Sodium Potassium Chloride Carbon Dioxide Anion Gap BUN Creatinine Estimated GFR (MDRD) Glucose Calcium Magnesium Total Bilirubin AST ALT Alkaline Phosphatase Troponin I High Sens 39.4 H* B-Natriuretic Peptide 184 H Total Protein Albumin Globulin Albumin/Globulin Ratio Lipase Influenza A (Rapid) Influenza B (Rapid) Blood Type Blood Type Recheck O NEGATIVE Antibody Screen Crossmatch IS Only 10/12/19 10/12/19 17:10 17:48 WBC RBC Hgb Hct MCV MCH MCHC RDW Plt Count MPV Neut # (Auto) Lymph # (Auto) Desha # (Auto) Eos # (Auto) Baso # (Auto) Absolute Nucleated RBC Nucleated RBC % PT INR Sodium Potassium Chloride Carbon Dioxide Anion Gap BUN Creatinine Estimated GFR (MDRD) Glucose Calcium Magnesium Total Bilirubin AST ALT Alkaline Phosphatase Troponin I High Sens B-Natriuretic Peptide Total Protein Albumin Globulin Albumin/Globulin Ratio Lipase Influenza A (Rapid) Negative Influenza B (Rapid) Negative Blood Type O NEGATIVE Blood Type Recheck Antibody Screen NEGATIVE Crossmatch IS Only See Detail - Rads (name of study) chest xray Radiology: Prelim report reviewed (Left lower lobe infiltrate predominantly seen on the lateral view. No significant CHF.), EMP read contemporaneously, See rad report PD MEDICAL DECISION MAKING - ED course Complexity details: reviewed results (She is anemic more than usual and does have some trace guaiac positive stool. It is not melena per se but does have some blood component. We will set her up for transfusion of a unit of blood given her difficulty breathing and lower oxygen level. Her Coumadin level is elevated and so consider some reversal of that. We will treat with some morphine and Lasix in addition as there may be some element of the CHF. The morphine should help with her anxiety as well. She is on supplemental oxygen does improve with nebulizer treatments.), re-evaluated patient, considered differential (She does have history of CHF but her current symptoms sound more wheezing with cough and sputum production. Her clinical findings are suggestive of pneumonia or bronchitis. This currently could certainly could be stressing on the heart to create some element of CHF as well. She does have some increased edema of her legs over baseline. Primary focus initially will be at respiratory and wheezing with supplemental oxygen and nebulizer treatments. We will treat with antibiotics for presumed bacterial infection. Will check a flu test as well.), d/w patient, d/w c consultant (I talked with the hospitalist hospitalist about the patient being acutely ill with needing supplemental oxygen and appearing pneumonia and there may be some element of CHF. Also the anemia.) ED course: The patient had been doing reasonably well with nebulizer treatments and supplemental oxygen via nasal cannula. However she had worsening dyspnea and some anxiety. There is some pedal edema noted and even though she did not appear to be in congestive failure, there may been some exacerbation of fluid overload given some IV medications. As well there was just a worsening of wheezing and dyspnea associated with the pneumonia too. We did give her some IV Lasix and had a Madsen catheter placed. Her oxygenation requirement worsened and was not responding to just nasal cannula or simple face max. We did initiate BiPAP and gave her some morphine as well to help with anxiety of it. This did provide for an acute improvement in her oxygenation and decrease her work of breathing. She was subsequently having a better color and able to relax and breathe comfortably. This did stabilize her and I feel that she will not be needing intubation. The patient will be going to the ICU under the hospitalist service. - Critical Care Time(min): 45 Time Includes: Direct patient care, Document care, Coordinate care, Family consult for tx nov Data interpretation: Labs, Pulse ox, ABG, CXR Departure - Departure Disposition: 66 CAH DC/Xfer Clinical Impression: Hypoxia, History of CHF (congestive heart failure) Pneumonia Qualifiers: Pneumonia type: due to unspecified organism Laterality: left Lung location: lower lobe of lung Qualified Code(s): J18.9 - Pneumonia, unspecified organism Dyspnea Qualifiers: Dyspnea type: dyspnea on exertion Qualified Code(s): R06.09 - Other forms of dyspnea Anemia Qualifiers: Anemia type: unspecified type Qualified Code(s): D64.9 - Anemia, unspecified Condition: Stable Record reviewed to determine appropriate education?: Yes
[2019-10-12] MEDS ORDERED: IPRATROPIUM/ALBUTEROL 3 ML NEB INH STA ×2 (15:39→17:20)
[2019-10-12] MEDS ORDERED: DEXAMETHASONE 10 MG/ML VIAL IVP STA (15:44)
[2019-10-12 15:56] LABS: BASOPHILS # (AUTO) 0.1 10^3/uL (0.0-0.1); BASOPHILS % (AUTO) 0.5 %; EOSINOPHILS # (AUTO) 0.1 10^3/uL (0.0-0.7); EOSINOPHILS % (AUTO) 0.9 %; HGB - HEMOGLOBIN 8.1 g/dL (12.0-16.0); LYMPHOCYTES # (AUTO) 0.6 10^3/uL (1.5-3.5); LYMPHOCYTES % (AUTO) 4.6 %; MEAN CORPUSCULAR HEMOGLOBIN 29.2 pg (27.0-31.0); MEAN CORPUSCULAR HGB CONC 30.3 g/dL (32.0-36.0); MEAN CORPUSCULAR VOLUME 96.4 fL (81.0-99.0); MEAN PLATELET VOLUME 11.3 fL (7.9-10.8); MONOCYTES # (AUTO) 0.8 10^3/uL (0.0-1.0); MONOCYTES % (AUTO) 5.8 %; NEUTROPHILS # (AUTO) 11.3 10^3/uL (1.5-6.6); NEUTROPHILS % (AUTO) 87.6 %; PLT - PLATELET COUNT 244 10^3/uL (130-450); RED BLOOD COUNT 2.77 10^6/uL (4.20-5.40); RED CELL DISTRIBUTION WIDTH 14.1 % (12.0-15.0); WHITE BLOOD COUNT 12.9 x10^3/uL (4.8-10.8)
[2019-10-12 16:10] LABS: ALBUMIN 3.8 g/dL (3.2-5.5); ALBUMIN/GLOBULIN RATIO 1.2 (1.0-2.2); BILIRUBIN,TOTAL 0.8 mg/dL (0.2-1.0); CALCIUM 9.1 mg/dL (8.5-10.3); CREATININE 1.4 mg/dL (0.4-1.0); TOTAL PROTEIN 6.9 g/dL (6.7-8.2)
[2019-10-12 16:11] LABS: INR 3.6 (0.8-1.2); PT - PROTHROMBIN TIME 37.8 secs (9.9-12.6)
[2019-10-12] MEDS ORDERED: cefTRIAXone 1 GM VIAL IVP STA (16:20)
[2019-10-12] MEDS ORDERED: NITROGLYCERIN SL 0.4 MG TABLET SL STA (16:40)
[2019-10-12] MEDS ORDERED: MORPHINE 2 MG/ML CARPUJECT IVP STA ×2 (16:40→18:04)
[2019-10-12] MEDS ORDERED: ALBUTEROL NEB 2.5 MG/3 ML INH STA (16:40)
--- NOTE | 2019-10-12 17:28 | XRAY Report ---
Reason: dyspnea/ cough Procedure Date: 10/12/2019 Accession Number: [id number] / [id number] Procedure: XR - Chest 2 View X-Ray CPT Code: 07944 Final Report FULL RESULT: EXAM: CHEST RADIOGRAPHY, 2 VIEWS EXAM DATE: 10/12/2019 04:24 PM. CLINICAL HISTORY: Dyspnea and cough in a 79-year-old female. COMPARISON: CHEST 2 VIEW PA/LAT 04/26/2017 12:04 PM. TECHNIQUE: Upright PA and lateral views. FINDINGS: Lungs/Pleura: Left lower lobe infiltrate consistent with pneumonia with probable minimal left pleural effusion. Right lung clear. No pneumothorax. Mediastinum: Heart size normal, without adenopathy or pulmonary vascular congestion. Other: Trachea is midline. Osseous structures are unremarkable for age. IMPRESSION: Left lower lobe infiltrate consistent with pneumonia with probable small left pleural effusion. [facility]
[2019-10-12] MEDS ORDERED: VANCOMYCIN INJ 1 GM in SODIUM CHLORIDE 0.9% 500 ML IV STA (17:32)
[2019-10-12] MEDS ORDERED: FUROSEMIDE 40 MG/4 ML VIAL IVP STA (17:43)
[2019-10-12] MEDS ORDERED: LEVALBUTEROL 1.25 MG/3 ML NEB INH STA (18:03)
[2019-10-12 18:53] LABS: ABG BASE EXCESS -10.2 mmol/L (-2.0-3.0); ABG HCO3 18.3 mmol/L (22.0-26.0); ABG OXYGEN SATURATION 92 % (94-98); ABG PCO2 53 mmHg (34-45); ABG PO2 78 mmHg (80-100); ABG TCO2 19.9 MMOL/L (21.0-29.0)
[2019-10-12 18:54] LABS: ALLEN TEST POSITIVE
[2019-10-12 18:56] LABS: ABG PH 7.16 (7.35-7.45)
[2019-10-12] MEDS ORDERED: ONDANSETRON 4 MG/2 ML VIAL IVP PRN (20:31)
[2019-10-12] MEDS ORDERED: ACETAMINOPHEN 325 MG TABLET PO PRN (20:31)
[2019-10-12] MEDS ORDERED: SODIUM CHLORIDE FLUSH 0.9% 10 ML SYRINGE IVP PRN (20:31)
[2019-10-12] MEDS ORDERED: IPRATROPIUM/ALBUTEROL 3 ML NEB INH PRN (20:38)
--- NOTE | 2019-10-12 20:45 | HISTORY & PHYSICAL EXAMINATION ---
Chief Complaint - Chief Complaint Chief Complaint: dyspnea, chest pain History of Present Illness - Admitted From Admitted From:: [facility] ED - History Obtained From Records Reviewed: yes History obtained from: patient and daughter - History of Present Illness HPI Comment/Other: Patient is a 79 y/o female with a significant medical history including CVA, CHF, COPD, DM, HTN, Depression, Hypothyroidism, Hyperlipidemia who presented to the ED via EMS. It is reported that she has been having dyspnea for the past month, however her symptoms got worse last night. She felt congested, had a cough with yellowish sputum and was experiencing chest pain. She was unable to lay down flat and ended up spending the night in her couch. She called EMS today when her dyspnea got worse. In the ED her respiratory status worsened further and she needed to be placed on a bipap. An ABG showed a pH of 7.16, pO2 78 and pCO2 of 53. See also had a chest xray done which was suggested a pneumonia. As a result result she is being admitted for further treatment. At bedside she is on bipap and appears calm. She reports marked improvement in her respiratory status since being on the bipap. She denied chest pain currently. No abd pain, nausea, vomiting, fever or chills. History - Past Medical History Cardiovascular: reports: Congestive heart failure, Hypertension, High cholesterol Respiratory: reports: Asthma Neuro: reports: CVA Endocrine/Autoimmune: reports: Type 2 diabetes GI: reports: GERD INTERIOR DESIGN DIRECTOR: reports: Uterine cancer : reports: None HEENT: reports: None Psych: reports: Depression Musculoskeletal: reports: None Derm: reports: None MRSA Hx?: No - Past Surgical History General: reports: Cholecystectomy Ortho: reports: Arthroscopic surgery /INTERIOR DESIGN DIRECTOR: reports: Hysterectomy HEENT: reports: Tonsil/Adenoidectomy - Family & Social History Family History Comment/Other: positive for hypertension and heart disease Social History Notes: She had a history of smoking 40 years ago. Does not currently smoke or drink alcohol and she does not use any illicit drugs. - POLST Patient has POLST: No POLST Status: Full Code Meds/Allgy - Home Medications Home Medications: Ambulatory Orders Medication Instructions Recorded Confirmed Citalopram [CeleXA] 20 mg PO DAILY 05/01/14 10/12/19 Glipizide 10 mg PO BID 05/01/14 10/12/19 Hydrochlorothiazide 12.5 mg PO DAILY 05/01/14 04/26/17 Levothyroxine [Synthroid] 175 mcg PO QDAC 05/01/14 10/12/19 Losartan [Cozaar] 100 mg PO DAILY 05/01/14 10/12/19 Simvastatin 40 mg PO DAILY 05/01/14 10/12/19 metFORMIN [Glucophage] 1,000 mg PO BID 05/01/14 10/12/19 Ipratropium/Albuterol [Duoneb] 3 ml INH Q6H PRN #20 neb 04/26/17 amLODIPine [Norvasc] 2 tab PO DAILY 04/26/17 10/12/19 Chlorthalidone 25 mg PO DAILY 10/12/19 10/12/19 Metoprolol Tartrate 25 mg PO BID 10/12/19 10/12/19 Pantoprazole [Protonix] 40 mg PO DAILY 10/12/19 10/12/19 Terazosin [Hytrin] 2 mg PO DAILY 10/12/19 10/12/19 Warfarin [Coumadin] 5 mg PO DAILY 10/12/19 10/12/19 - Allergies Allergies/Adverse Reactions: Allergies Allergy/AdvReac Type Severity Reaction Status Date / Time codeine AdvReac Nausea Verified 10/12/19 15:24 Review of Systems - Constitutional Constitutional: reports: Fatigue, Chills, Weakness. denies: Fever - Eyes Eyes: denies: Pain, Vision loss - Ears, Nose & Throat Ears, Nose & Throat: denies: Tinnitus, Vertigo, Sore throat - Cardiovascular Cariovascular: reports: Palpitations, Chest pain, Edema, Exertional dyspnea, Decr. exercise tolerance, Orthopnea. denies: Lightheadedness, Syncope - Respiratory Respiratory: reports: Cough, Sputum production (yellowish), Orthopnea, SOB at rest, SOB with exertion. denies: Wheezing - Gastrointestinal Gastrointestinal: reports: Nausea, Vomiting, Reflux/heartburn. denies: Abdominal pain, Abdominal distention, Constipation, Black stools, Coffee grounds emesis - Genitourinary Genitourinary: denies: Dysuria, Frequency, Urgency, Hematuria, Incontinence - Musculoskeletal Musculoskeletal: denies: Muscle pain, Back pain, Muscle aches, Stiffness - Integumentary Integumentary: denies: Rash, Pruritis, Lesions, Dryness - Neurological Neurological: reports: General weakness. denies: Focal weakness, Headache - Psychiatric Psychiatric: reports: Depression. denies: Anxiety - Endocrine Endocrine: denies: Polyuria, Polydypsia - Hematologic/Lymphatic Hematologic/Lymphatic: denies: Anemia, Bruising Prior Level of Functionality: SHe is independent of activities of daily living Exam - Vital Signs Vital Signs: Vital Signs x48h Temp Pulse Pulse Resp BP BP Pulse Ox 10/12/19 20:01 100 129/54 L 10/12/19 19:50 37.0 C 98 17 129/54 L 97 10/12/19 18:56 105 H 0 L 111/58 L 94 10/12/19 18:18 114 H 10/12/19 18:15 118 H 25 H 151/98 H 92 10/12/19 17:59 127 H 26 H 10/12/19 17:36 115 H 28 H 163/67 H 88 L 10/12/19 17:21 37.2 C 118 H 32 H 158/91 H 88 L 10/12/19 17:03 101 H 19 10/12/19 16:46 98 22 146/59 H 89 L 10/12/19 16:36 105 H 20 145/107 H 9 L 10/12/19 16:23 36.5 C 107 H 24 178/74 H 93 10/12/19 16:00 102 H 22 10/12/19 15:41 36.5 C 97 22 142/63 H 93 10/12/19 15:09 36.7 C 94 20 147/70 H 95 - Physical Exam General Appearance: positive: Alert, Mild distress Eyes Bilateral: positive: Normal inspection, PERRL, EOMI ENT: positive: ENT inspection nml, No signs of dehydration Neck: positive: Nml inspection, No JVD, Trachea midline Respiratory: positive: Rhonchi. negative: Chest non-tender, No respiratory dis tress, Breath sounds nml, Wheezes Cardiovascular: positive: Regular rate & rhythm Abdomen: positive: Non-tender, No organomegaly, Nml bowel sounds, No distention. negative: Guarding, Rebound Back: positive: Nml inspection Skin: positive: Color nml, No rash, Warm, Dry Extremities: positive: Non-tender, Pedal edema (2+) Neurologic/Psychiatric: positive: Oriented x3, Mood/affect nml Conclusion/Plan - Problem List (1) Acute respiratory failure with hypoxia and hypercapnia Conclusion/Plan: Likely multifactorial Respiratory cause: Pneumonia and ?COPD Cardiac cause: NSTEMI and ?CHF Patient given vancomycin and rocephin in the ED Will add azithromycin and hold vancomycin Blood cultures were drawn. however, this was after antibiotics were given Tylenol for fever. It questionable whether the patient has COPD, since a PFT done 09/23/19 was normal Patient given a dose of dexamethasone in the ED. Will not continue steroids. Will continue breathing treatments Trending troponin. INR 3.6. Pt on coumadin. Will not order heparin. Last stress test was in July of 2019. Her asset protection manager is Dr Jose Randolph. Patient given lasix 40mg IV in the ED Will continue 20mg IV bid (2) NSTEMI (non-ST elevated myocardial infarction) Conclusion/Plan: Initial troponin was 39.4. Repeat was 302.2 Will complete trending Patient is on coumadin with an INR of 3.6 Will hold off on heparin at the moment, since patient has supratherapeutic INR Resume metoprolol, losartan and atorvastatin once verified. 2D echo in the am. (3) History of CHF (congestive heart failure) Conclusion/Plan: ?Exacerbated by NSTEMI Patient given lasix 40mg IV in the ED Will continue 20mg IV bid 2D echo in the am. Complete trending troponin. No IV fluids. Resume metoprolol, losartan and atorvastatin once verified (4) Pneumonia Conclusion/Plan: Patient given vancomycin and rocephin in the ED Will add azithromycin and hold vancomycin Blood cultures drawn (this was after antibiotics) Qualifiers: Pneumonia type: due to unspecified organism Laterality: left Lung location: lower lobe of lung Qualified Code(s): J18.9 - Pneumonia, unspecified organism (5) Diabetes mellitus Conclusion/Plan: Hold metformin and glipizide SSI. Accu checks Qualifiers: Diabetes mellitus type: type 2 (6) Hyperlipidemia Conclusion/Plan: On atorvastatin. Resume once verified (7) History of CVA (cerebrovascular accident) Conclusion/Plan: on coumadin (8) Hypothyroidism Conclusion/Plan: On synthroid. Resume once verified (9) GERD (gastroesophageal reflux disease) Conclusion/Plan: On protonix (10) Depression Conclusion/Plan: On citalopram. Resume once verified - Lab Results Fish Bones: 10/12/19 15:51 10/12/19 15:51 Core Measures - Anticipated LOS I expect patient to be DC'd or transferred within 96 hours.: Yes - DVT/VTE - Prophylaxis VTE/DVT Device ordered at admit?: Yes VTE/DVT Prophylaxis med ordered at admit?: Yes
[2019-10-12] MEDS ORDERED: NYSTATIN POWDER 15 GM TOP SCH (21:00)
[2019-10-12] MEDS ORDERED: METOPROLOL TARTRATE 25 MG TABLET PO SCH (21:00)
[2019-10-12] MEDS ORDERED: INSULIN ASPART 300 UNIT/3 ML PEN SUBQ SCH (21:00)
[2019-10-12 22:14] LABS: ABG PH 7.23 (7.35-7.45)
[2019-10-12 22:15] LABS: ABG BASE EXCESS -8.5 mmol/L (-2.0-3.0); ABG HCO3 18.5 mmol/L (22.0-26.0); ABG OXYGEN SATURATION 95 % (94-98); ABG PCO2 45 mmHg (34-45); ABG PO2 83 mmHg (80-100); ABG TCO2 19.9 MMOL/L (21.0-29.0); ALLEN TEST POSITIVE
[2019-10-12 23:54] LABS: ABG BASE EXCESS -7.6 mmol/L (-2.0-3.0); ABG OXYGEN SATURATION 97 % (94-98); ABG PCO2 43 mmHg (34-45); ABG PH 7.26 (7.35-7.45); ABG PO2 107 mmHg (80-100); ABG TCO2 20.3 MMOL/L (21.0-29.0); ALLEN TEST POSITIVE
[2019-10-13] MEDS ORDERED: AZITHROMYCIN INJ 500 MG in SODIUM CHLORIDE 0.9% 250 ML IV SCH ×2 (00:15→09:00)
[2019-10-13] MEDS ORDERED: SODIUM CHLORIDE FLUSH 0.9% 10 ML SYRINGE IVP SCH (01:00)
[2019-10-13 03:03] LABS: BASOPHILS # (AUTO) 0.1 10^3/uL (0.0-0.1); BASOPHILS % (AUTO) 0.4 %; EOSINOPHILS # (AUTO) 0.3 10^3/uL (0.0-0.7); EOSINOPHILS % (AUTO) 1.9 %; HGB - HEMOGLOBIN 7.7 g/dL (12.0-16.0); LYMPHOCYTES # (AUTO) 0.3 10^3/uL (1.5-3.5); LYMPHOCYTES % (AUTO) 2.3 %; MEAN CORPUSCULAR HEMOGLOBIN 29.4 pg (27.0-31.0); MEAN CORPUSCULAR HGB CONC 30.9 g/dL (32.0-36.0); MEAN PLATELET VOLUME 11.5 fL (7.9-10.8); MONOCYTES # (AUTO) 0.8 10^3/uL (0.0-1.0); MONOCYTES % (AUTO) 5.2 %; NEUTROPHILS % (AUTO) 89.8 %; PLT - PLATELET COUNT 265 10^3/uL (130-450); RED BLOOD COUNT 2.62 10^6/uL (4.20-5.40); RED CELL DISTRIBUTION WIDTH 14.1 % (12.0-15.0); WHITE BLOOD COUNT 14.5 x10^3/uL (4.8-10.8)
[2019-10-13 03:09] LABS: INR 3.9 (0.8-1.2); PT - PROTHROMBIN TIME 41.1 secs (9.9-12.6)
[2019-10-13 03:12] LABS: CALCIUM 8.7 mg/dL (8.5-10.3); CREATININE 1.6 mg/dL (0.4-1.0)
[2019-10-13 03:17] LABS: MAGNESIUM 1.8 mg/dL (1.7-2.8); PHOSPHORUS 4.3 mg/dL (2.5-4.6)
[2019-10-13] MEDS ORDERED: FUROSEMIDE 40 MG/4 ML VIAL IVP STA (04:24)
[2019-10-13] MEDS ORDERED: SODIUM CHLORIDE 0.9% 500 ML ONE (04:58)
[2019-10-13] MEDS ORDERED: NITROGLYCERIN 50 MG/250 ML 50 MG/250 ML BOTTLE IV SCH (05:00)
[2019-10-13] MEDS ORDERED: FUROSEMIDE 20 MG/2 ML VIAL IVP SCH (06:00)
[2019-10-13 06:07] LABS: ABG BASE EXCESS -4.5 mmol/L (-2.0-3.0); ABG HCO3 20.9 mmol/L (22.0-26.0); ABG OXYGEN SATURATION 92 % (94-98); ABG PCO2 40 mmHg (34-45); ABG PH 7.34 (7.35-7.45); ABG PO2 63 mmHg (80-100); ABG TCO2 22.1 MMOL/L (21.0-29.0)
[2019-10-13 06:08] LABS: ALLEN TEST POSITIVE
--- NOTE | 2019-10-13 06:31 | Discharge Plan ---
Discharge Plan Problem Reviewed?: Yes Disposition: 02 Transfer Acute Care Hosp Condition: Stable Diet: Cardiac Activity Restrictions: Activity as Tolerated Assistance Devices: Walker Weight Bearing: Full Weight Health Concerns: 1. Acute Respiratory Failure with Hypoxia and Hypercapnia: This is like due to NSTEMI, CHF and Pneumonia You received vancomycin, Azithromycin and rocephin You received a total of 80mg IV of lasix You are being transferred to [facility] for a cardiology consult and a possible cardiac cath Your will be maintained on a nitroglycerin drip and a bipap until transferred there Resume your metoprolol, losartan, atorvastatin and coumadin as directed by cardiology and the hospitalist team at [facility] 2. NSTEMI: Plan as in #1 above 3. History of CHF: Plan as in #1 above 4. Pneumonia: Plan as in #1 above 5. Diabetes mellitus: Your metformin and glipizide will be led while in the hospital It will be resumed upon discharge home 6. Hyperlipidemia: Resume your atorvastatin 7. Hx of CVA: On coumadin 8. Hypothyroidism Resume your synthroid at home dose 9. GERD: Protonix was ordered 10. Depression: Resume your citalopram Plan of Treatment: 1. Acute Respiratory Failure with Hypoxia and Hypercapnia: This is like due to NSTEMI, CHF and Pneumonia You received vancomycin, Azithromycin and rocephin You received a total of 80mg IV of lasix You are being transferred to [facility] for a cardiology consult and a possible cardiac cath Your will be maintained on a nitroglycerin drip and a bipap until transferred there Resume your metoprolol, losartan, atorvastatin and coumadin as directed by cardiology and the hospitalist team at [facility] 2. NSTEMI: Plan as in #1 above 3. History of CHF: Plan as in #1 above 4. Pneumonia: Plan as in #1 above 5. Diabetes mellitus: Your metformin and glipizide will be led while in the hospital It will be resumed upon discharge home 6. Hyperlipidemia: Resume your atorvastatin 7. Hx of CVA: On coumadin 8. Hypothyroidism Resume your synthroid at home dose 9. GERD: Protonix was ordered 10. Depression: Resume your citalopram Care Goals: Follow with your para educator as Directed by Cardiology at [facility] Follow with you primary care physician within 7 days of discharge from [facility] Assessment: This was explained to the patient and her daughter Doris who expressed understanding. No Smoking: If you smoke, Please STOP! Call for help. Follow-up with: Bora Gilmore MD [Primary Care Provider] -
--- NOTE | 2019-10-13 06:32 | DISCHARGE SUMMARY ---
Discharge Summary Admit Date: 10/12/19 Discharge Date: 10/13/19 Discharging Provider: Viji Maldonado Primary Care Provider: Bora Gilmore Condition at Discharge: Stable Discharge Disposition: 02 Transfer Acute Care Hosp Discharge Facility Name: [facility] - DIAGNOSES Admission Diagnoses: 1. Acute Respiratory Failure with hypoxia and hypercapnia 2. NSTEMI 3. History of CHF 4. Pneumonia 5. Diabetes mellitus 6. Hyperipidemia 7. History of CVA 8. Hypothyroidism 9. GERD 10. Depression Discharge Diagnoses with Status of Each Condition: 1. Acute Respiratory Failure with hypoxia and hypercapnia: Improved 2. NSTEMI: Ongoing. Transferred for Higher Level of Care 3. History of CHF: Exacerbated by NSTEMI. On bipap 4. Pneumonia: Ongoing. Recieved vancomycin, rocephin, 5. Diabetes mellitus: Chronic 6. Hyperlipidemia: Chronic 7. History of CVA: Chronic 8. Hypothyroidism: Chronic 9. GERD: Chronic 10. Depression: Chronic - HPI History of Present Illness: Patient is a 79 y/o female with a significant medical history including CVA, CHF, COPD, DM, HTN, Depression, Hypothyroidism, Hyperlipidemia who presented to the ED via EMS. It is reported that she has been having dyspnea for the past month, however her symptoms got worse last night. She felt congested, had a cough with yellowish sputum and was experiencing chest pain. She was unable to lay down flat and ended up spending the night in her couch. She called EMS today when her dyspnea got worse. In the ED her respiratory status worsened further and she needed to be placed on a bipap. An ABG showed a pH of 7.16, pO2 78 and pCO2 of 53. See also had a chest xray done which was suggested a pneumonia. As a result result she is being admitted for further treatment. At bedside she is on bipap and appears calm. She reports marked improvement in her respiratory status since being on the bipap. She denied chest pain cur rently. No abd pain, nausea, vomiting, fever or chills. - HOSPITAL COURSE Hospital Course: Patient was admitted to the ICU on bipap. She was given vancomycin and rocephin in the ED Azithromycin was added and vancomycin discontinued She also had duoneb q4hrs prn She was given dexamethasone 10mg IV in the ED She received a total of 80mg IV of lasix during this admission Troponin trended from 39 to 302 to 1900 Her INR was 3.6 so heparin was not started. She is on coumadin after a CVA in the past. Recheck INR was 3.9 [facility] [address] Fischer was contacted. As well as the hospitalist Dr Boo, who accepted the patient to the ICU. Dr Fischer recommended starting the patient on nitroglycerin drip. Initial ABG pH 7.16 pCO2 53, pO278 HCO3 18 Repeat ABG pH 7.23, pCO2 45, pO2 83, HCO3 20.9 - ALLERGIES Allergies/Adverse Reactions: Allergies Allergy/AdvReac Type Severity Reaction Status Date / Time codeine AdvReac Nausea Verified 10/12/19 15:24 - MEDICATIONS Home Medications: Ambulatory Orders Medication Instructions Recorded Confirmed Citalopram [CeleXA] 20 mg PO DAILY 05/01/14 10/12/19 Glipizide 10 mg PO BID 05/01/14 10/12/19 Hydrochlorothiazide 12.5 mg PO DAILY 05/01/14 04/26/17 Levothyroxine [Synthroid] 175 mcg PO QDAC 05/01/14 10/12/19 Losartan [Cozaar] 100 mg PO DAILY 05/01/14 10/12/19 Simvastatin 40 mg PO DAILY 05/01/14 10/12/19 metFORMIN [Glucophage] 1,000 mg PO BID 05/01/14 10/12/19 Ipratropium/Albuterol [Duoneb] 3 ml INH Q6H PRN #20 neb 04/26/17 amLODIPine [Norvasc] 2 tab PO DAILY 04/26/17 10/12/19 Chlorthalidone 25 mg PO DAILY 10/12/19 10/12/19 Metoprolol Tartrate 25 mg PO BID 10/12/19 10/12/19 Pantoprazole [Protonix] 40 mg PO DAILY 10/12/19 10/12/19 Terazosin [Hytrin] 2 mg PO DAILY 10/12/19 10/12/19 Warfarin [Coumadin] 5 mg PO DAILY 10/12/19 10/12/19 - PHYSICAL EXAM AT DISCHARGE General Appearance: positive: No acute distress Eyes Bilateral: positive: Normal inspection, PERRL, EOMI ENT: positive: ENT inspection nml Neck: positive: Nml inspection, No JVD, Trachea midline Respiratory: positive: Chest non-tender, Wheezes, Other (Coarse breath sound) Cardiovascular: positive: Regular rate & rhythm, No murmur Abdomen: positive: Non-tender, Nml bowel sounds, No distention Rectal: positive: Non-tender Back: positive: Nml inspection Skin: positive: Color nml, No rash, Warm, Dry Extremities: positive: Pedal edema (2+) Neurologic/Psychiatric: positive: Oriented x3, Sensation nml, Mood/affect nml - LABS Result Diagrams: 10/13/19 02:51 10/13/19 02:51 - QUALITY (Female Hip Fx Only) Was patient sent home on osteoporosis medication?: No (Transfered to another hospital) - FOLLOW UP Follow Up: With PCP with 7 days of discharge from [facility] With Negative Assembler as recommended by kohinoor operator at [facility] - TIME SPENT Time Spent in Discharge (Minutes): 45
[2019-10-13] MEDS ORDERED: PANTOPRAZOLE 40 MG VIAL IVP SCH (07:00)
[2019-10-13] MEDS ORDERED: INSULIN ASPART 300 UNIT/3 ML PEN SUBQ SCH (08:00)
[2019-10-13 09:42] VITALS: BP 132/59
[2019-10-13] MEDS ORDERED: cefTRIAXone 1 GM in SODIUM CHLORIDE 0.9% MINIBAG 100 ML IV SCH (16:00)
[2019-10-14] MEDS ORDERED: AZITHROMYCIN 250 MG TABLET PO SCH (09:00)
== END 2019-10-13 10:18 | disposition short-term general hospital (02) | DRG 280 ==
LOC: EDUNIT# → ED 15:06 → ICU 17:58
PROVIDERS: ADMIT Internal Medicine; ATTEND Internal Medicine
DX: I21.4 Non-ST elevation (NSTEMI) myocardial infarction (principal); R06.09 Other forms of dyspnea; D64.9 Anemia, unspecified; J96.01 Acute respiratory failure with hypoxia; J18.9 Pneumonia, unspecified organism; J45.909 Unspecified asthma, uncomplicated; F17.201 Nicotine dependence, unspecified, in remission; J96.02 Acute respiratory failure with hypercapnia; E11.9 Type 2 diabetes mellitus without complications; F41.9 Anxiety disorder, unspecified; I11.0 Hypertensive heart disease with heart failure; I50.9 Heart failure, unspecified; J44.9 Chronic obstructive pulmonary disease, unspecified; K21.9 Gastro-esophageal reflux disease without esophagitis; E78.5 Hyperlipidemia, unspecified; F32.9 Major depressive disorder, single episode, unspecified; E03.9 Hypothyroidism, unspecified; Z79.84 Long term (current) use of oral hypoglycemic drugs; Z79.51 Long term (current) use of inhaled steroids; Z79.01 Long term (current) use of anticoagulants; Z85.42 Personal history of malignant neoplasm of other parts of uterus; Z86.73 Personal history of transient ischemic attack (TIA), and cerebral infarction without residual deficits; Z87.891 Personal history of nicotine dependence
CPT/HCPCS: 36415; 36600; 71046; 80048; 80053; 82803; 83605; 83690; 83735; 83880; 84100; 84484; 85025; 85610; 86850; 86900; 86901; 86920; 87040; 87150; 87275; 87276; 93005; 94640; 94660; 96374; 96375; 99285; 99291; A9270; J3370; 83036